=== PATIENT | female | born 1995 | race Two or more races ===

== ENCOUNTER 2017-04-24 04:46 | Emergency (ER) | payer OTHER ==
[2017-04-24 05:00] VITALS: BP 131/73; PULSE 50; RESP 14; TEMP 97.3; O2SAT 99
--- NOTE | 2017-04-24 05:32 | EDPHY ---
H & P Stated Complaint: atraumatic low back pain x 3 days Time Seen by Provider: 04/24/17 05:17 HPI/ROS: HPI The patient presents with lower back pain which has been present for the last 3 days and began after a 2 hour hike. The pain is in her right lower back, achy in nature, radiates throughout her buttocks. It has been intermittent but prevented her from sleeping tonight, so she comes into the emergency department. She has not tried taking any medicines for pain. She denies any weakness of the leg but does feel some tingling. She has not had a fever. She has no prior history of similar pain.. REVIEW OF SYSTEMS Constitutional: No fever, no chills. Eyes: No discharge. ENT: No sore throat. Cardiovascular: No chest pain, no palpitations. Respiratory: No cough, no shortness of breath. Gastrointestinal: No abdominal pain, no vomiting. Genitourinary: No hematuria. Musculoskeletal: Positive for back pain. Skin: No rashes. Neurological: No headache. PMHx: Healthy Soc Hx: College student PHYSICAL General Appearance: Alert, no distress Eyes: Pupils equal and round no pallor or injection ENT, Mouth: Mucous membranes moist Respiratory: There are no retractions, lungs are clear to auscultation Cardiovascular: Regular rate and rhythm Gastrointestinal: Abdomen is soft and non-tender, no masses, bowel sounds normal Neurological: A&O, 5/5 strength in her lower extremities which is symmetric, there is sensation intact to light touch, normal gait is present Skin: Warm and dry, no rashes Musculoskeletal: There is no midline tenderness of the thoracic or lumbar spine , there is tenderness in the right-sided lower lumbar paraspinals and in the sciatic notch Extremities: symmetrical, full range of motion Psychiatric: Patient is oriented X 3, there is no agitation Source: Patient Exam Limitations: No limitations - Personal History LMP (Females 10-55): Now Current Tetanus/Diphtheria Vaccine: Yes Tetanus Vaccine Date: <10 YRS - Medical/Surgical History Hx Asthma: No Hx Chronic Respiratory Disease: No Hx Diabetes: No Hx Cardiac Disease: No Hx Renal Disease: No Hx Cirrhosis: No Hx Alcoholism: No Hx HIV/AIDS: No Hx Splenectomy or Spleen Trauma: No Other PMH: PMHx: denies. 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 There are no red flag features. Differential diagnosis includes lumbar radiculopathy, sciatica, muscular spasm. In the emergency department, we discussed pain medication with ibuprofen and Tylenol. We discussed continuing exercise in using heat or ice packs. She is to follow up at [facility] in [place] of her symptoms persisted she may benefit from physical therapy. Departure - Departure Disposition: Home, Routine, Self-Care Clinical Impression: Lower back pain Qualifiers: Chronicity: acute Back pain laterality: right Sciatica presence: with sciatica Sciatica laterality: sciatica of right side Qualified Code(s): M54.41 - Lumbago with sciatica, right side Condition: Good Instructions: Sciatica (ED), Lower Back Exercises (ED) Additional Instructions: You should take ibuprofen 400 mg and acetaminophen 650 mg together every 6 hours as needed for pain. If the pain continues beyond 1 week, you can [facility]. Some people benefit from physical therapy. You can return to the emergency room if your worse in any way. Referrals: [facility] [Clinic] - As per Instructions Stand Alone Forms: School Excuse
== END 2017-04-24 05:41 | disposition home or self-care (01) ==
DX: M54.41 Lumbago with sciatica, right side (principal)

== ENCOUNTER 2017-06-14 20:46 | Emergency (ER) | payer OTHER ==
[2017-06-14 20:50] VITALS: RESP 18; O2SAT 98
--- NOTE | 2017-06-14 21:02 | EDPHY ---
H & P Stated Complaint: generalized abd pain x5 days Time Seen by Provider: 06/14/17 21:01 HPI/ROS: HPI: This is a 22-year-old female who presents with Chief Complaint: generalized abd pain x5 days Location: Generalized abdomen Quality: Pain Duration: 5 days Signs and Symptoms: no fever, no nausea, no vomiting, no hematemesis, no blood in stool, + abdominal bloating, no diarrhea, no back pain, no urinary symptoms, no vaginal bleeding/discharge, no indigestion, no chest pain, no shortness of breath Timing: Waxes and wanes Severity: Moderate to severe Context: Patient presents with generalized abdominal pain that started in the epigastric area and goes to suprapubic region, that waxes and wanes, nothing makes better or worse, over the last 5 days. She reports that she has been drinking plenty of fluids. Had a hard bowel movement today. She has been going to the gym and doing more sit-ups unusual. Denies any food intolerance/ fever/diarrhea/vaginal bleeding/vaginal discharge. She reports that she feels bloated and has early satiety. LMP 8-14 days ago. Modifying Factors: None Comment: ROS: see HPI Constitutional: No fever, no chills, no weight loss Eyes: No blurred vision Respiratory: No shortness of breath, no cough Cardiovascular: No chest pain, no palpitations Gastrointestinal: No nausea, no vomiting, no diarrhea, no hematemesis, no blood in stool Genitourinary: No dysuria, no blood in urine Extremities: No myalgias, no edema Neurologic: No weakness, no numbness Skin: No rashes, no petechiae Hematologic: No bruising, no bleeding MEDICAL/SURGICAL/SOCIAL HISTORY: Medical history: Generally healthy. Does not take any regular medications. Surgical history: Denies Social history: Local college student CONSTITUTIONAL: Nontoxic appearing young adult white male, awake and alert, no obvious distress HEENT: Atraumatic and normocephalic, PERRL, EOMI. Tympanic membranes clear. Oropharynx clear, no exudate and moist pink mucosa. Airway patent. No lymphadenopathy. No meningismus. Cardiovascular: Normal S1/S2, regular rate, regular rhythm, without murmur rub or gallop. PULMONARY/CHEST: Symmetrical and nontender. Clear to auscultation bilaterally. Good air movement. No accessory muscle usage. ABDOMEN: Soft, nondistended, epigastric, right upper quadrant tenderness, no rebound, no guarding, no peritoneal signs, no masses or organomegaly. No CVAT. Bowel sounds hypoactive. EXTREMITIES: 2/2 pulses, strength 5/5, no deformities, no clubbing, no cyanosis or edema. NEUROLOGICAL: no focal neuro deficits. GCS 15. SKIN: Warm and dry, no erythema. no rash. Good capillary refill. Source: Patient Exam Limitations: No limitations - Personal History LMP (Females 10-55): 8-14 Days Ago Current Tetanus/Diphtheria Vaccine: Unsure Tetanus Vaccine Date: <10 YRS - Medical/Surgical History Hx Asthma: No Hx Chronic Respiratory Disease: No Hx Diabetes: No Hx Cardiac Disease: No Hx Renal Disease: No Hx Cirrhosis: No Hx Alcoholism: No Hx HIV/AIDS: No Hx Splenectomy or Spleen Trauma: No Other PMH: PMHx: denies. PSHx: denies - Social History Smoking Status: Never smoked Constitutional: Initial Vital Signs Temperature (C) 36.6 C 06/14/17 20:48 Heart Rate 77 06/14/17 20:48 Respiratory Rate 18 06/14/17 20:48 Blood Pressure 133/88 H 06/14/17 20:48 O2 Sat (%) 98 06/14/17 20:48 O2 Delivery Mode Room Air Allergies/Adverse Reactions: No Known Allergies Allergy (Verified 06/14/17 20:50) Home Medications: Medication Instructions Recorded Polyethylene Glycol 3350 [Miralax 17 gm PO DAILY #20 pkt 06/14/17 17 gm (*)] Medical Decision Making - Diagnostics Imaging Results: Imaging Impressions Abdomen X-Ray 06/14/17 21:06 Impression: Constipation. Otherwise negative. ED Course/Re-evaluation: Labs, urinalysis, right upper quadrant ultrasound, KUB ordered Urinalysis negative. Labs reviewed and show a white blood cell count of 14 K. no signs of anemia/ electrolyte imbalance/acute kidney injury/transaminitis Not Called by radiologist who advised ultrasound shows no signs of cholecystitis pancreatitis hydronephrosis. KUB shows large amount of stool burden consistent with constipation MiralAx given. This patient was seen under the supervision of my secondary supervising physician. I evaluated care for this patient independently. Discussed this patient with Dr. Shabazz who did not see the patient. Differential Diagnosis: Abdominal pain including but not limited to appendicitis, musculoskeletal, cholecystitis, gastritis and urinary tract infection. - Data Points Laboratory Results: Laboratory Results 06/14/17 21:10 06/14/17 21:10 06/14/17 06/14/17 06/14/17 21:10 21:10 21:10 WBC 14.48 10^3/uL H 10^3/uL (3.80-9.50) RBC 4.74 10^6/uL 10^6/uL (4.18-5.33) Hgb 14.0 g/dL g/dL (12.6-16.3) Hct 40.7 % % (38.0-47.0) MCV 85.9 fL fL (81.5-99.8) MCH 29.5 pg pg (27.9-34.1) MCHC 34.4 g/dL g/dL (32.4-36.7) RDW 13.5 % % (11.5-15.2) Plt Count 325 10^3/uL 10^3/uL (150-400) MPV 11.0 fL fL (8.7-11.7) Neut % (Auto) 62.1 % % (39.3-74.2) Lymph % (Auto) 30.3 % % (15.0-45.0) [place] % (Auto) 5.9 % % (4.5-13.0) Eos % (Auto) 1.0 % % (0.6-7.6) Baso % (Auto) 0.4 % % (0.3-1.7) Nucleat RBC Rel Count 0.0 % % (0.0-0.2) Absolute Neuts (auto) 8.99 10^3/uL H 10^3/uL (1.70-6.50) Absolute Lymphs (auto) 4.39 10^3/uL H 10^3/uL (1.00-3.00) Absolute Monos (auto) 0.85 10^3/uL H 10^3/uL (0.30-0.80) Absolute Eos (auto) 0.15 10^3/uL 10^3/uL (0.03-0.40) Absolute Basos (auto) 0.06 10^3/uL 10^3/uL (0.02-0.10) Absolute Nucleated RBC 0.00 10^3/uL 10^3/uL (0-0.01) Immature Gran % 0.3 % % (0.0-1.1) Immature Gran # 0.04 10^3/uL 10^3/uL (0.00-0.10) Sodium 143 mEq/L mEq/L (134-144) Potassium 3.9 mEq/L mEq/L (3.5-5.2) Chloride 103 mEq/L mEq/L (97-110) Carbon Dioxide 25 mEq/l mEq/l (22-31) Anion Gap 15 mEq/L mEq/L (8-16) BUN 15 mg/dL mg/dL (7-23) Creatinine 0.8 mg/dL mg/dL (0.6-1.0) Estimated GFR > 60 Glucose 80 mg/dL mg/dL (70-100) Calcium 10.1 mg/dL mg/dL (8.5-10.4) Total Bilirubin 0.6 mg/dL mg/dL (0.1-1.4) Conjugated Bilirubin 0.1 mg/dL mg/dL (0.0-0.5) Unconjugated Bilirubin 0.5 mg/dL mg/dL (0.0-1.1) AST 26 IU/L IU/L (14-46) ALT 36 IU/L IU/L (9-52) Alkaline Phosphatase 71 IU/L IU/L (38-126) Total Protein 7.5 g/dL g/dL (6.3-8.2) Albumin 4.5 g/dL g/dL (3.5-5.0) Lipase 97 IU/L IU/L (23-300) Beta HCG, Qual NEGATIVE Urine Color Urine Appearance Urine pH Ur Specific [place] Urine Protein Urine Ketones Urine Blood Urine Nitrate Urine Bilirubin Urine Urobilinogen Ur Leukocyte Esterase Urine Glucose 06/14/17 20:54 WBC RBC Hgb Hct MCV MCH MCHC RDW Plt Count MPV Neut % (Auto) Lymph % (Auto) [place] % (Auto) Eos % (Auto) Baso % (Auto) Nucleat RBC Rel Count Absolute Neuts (auto) Absolute Lymphs (auto) Absolute Monos (auto) Absolute Eos (auto) Absolute Basos (auto) Absolute Nucleated RBC Immature Gran % Immature Gran # Sodium Potassium Chloride Carbon Dioxide Anion Gap BUN Creatinine Estimated GFR Glucose Calcium Total Bilirubin Conjugated Bilirubin Unconjugated Bilirubin AST ALT Alkaline Phosphatase Total Protein Albumin Lipase Beta HCG, Qual Urine Color YELLOW Urine Appearance CLEAR Urine pH 7.0 (5.0-7.5) Ur Specific [place] 1.018 (1.002-1.030) Urine Protein NEGATIVE (NEGATIVE) Urine Ketones NEGATIVE (NEGATIVE) Urine Blood NEGATIVE (NEGATIVE) Urine Nitrate NEGATIVE (NEGATIVE) Urine Bilirubin NEGATIVE (NEGATIVE) Urine Urobilinogen NEGATIVE EU EU (0.2-1.0) Ur Leukocyte Esterase NEGATIVE (NEGATIVE) Urine Glucose NEGATIVE (NEGATIVE) Departure - Departure Disposition: Home, Routine, Self-Care Clinical Impression: Constipation Qualifiers: Constipation type: unspecified constipation type Qualified Code(s): K59.00 - Constipation, unspecified Condition: Good Instructions: Constipation (ED), High Fiber Diet (ED) Additional Instructions: Please take MiraLax daily for the next 7 days and then daily as needed for constipation. Please drink a minimum of 8-10 glasses of water per day. Eat a diet high in fiber that includes fruits and vegetables. Referrals: [facility],. [Clinic] - As per Instructions Prescriptions: Polyethylene Glycol 3350 [Miralax 17 gm (*)] 17 gm PO DAILY #20 pkt
[2017-06-14 21:07] LABS: COLOR YELLOW; LEUKOCYTE ESTERASE,URINE NEGATIVE (NEGATIVE); NITRITE,URINE NEGATIVE (NEGATIVE)
[2017-06-14 21:23] LABS: % IMMATURE GRANULYOCYTES 0.3 % (0.0-1.1); ABSOLUTE IMMATURE GRANULOCYTES 0.04 10^3/uL (0.00-0.10); ADD DIFF? NO; ADD MORPH? NO; ADD SCAN? NO; ATYPICAL LYMPHOCYTE FLAG 0 (0-99); FRAGMENT RBC FLAG 0 (0-99); HEMATOCRIT 40.7 % (38.0-47.0); LEFT SHIFT FLG 0 (0-99); LIPEMIA HEMOLYSIS FLAG 90 (0-99); MEAN CELL HEMOGLOBIN 29.5 pg (27.9-34.1); MEAN CELL HEMOGLOBIN CONCENTR. 34.4 g/dL (32.4-36.7); MEAN CELL VOLUME 85.9 fL (81.5-99.8); PLATELET CLUMPS FLAG 0 (0-99); PLATELET COUNT 325 10^3/uL (150-400); RED BLOOD CELL COUNT 4.74 10^6/uL (4.18-5.33); RED CELL DISTRIBUTION WIDTH 13.5 % (11.5-15.2)
[2017-06-14 21:38] LABS: ALANINE AMINOTRANSFERASE 36 IU/L (9-52); ALBUMIN 4.5 g/dL (3.5-5.0); ALKALINE PHOSPHATASE 71 IU/L (38-126); ANION GAP 15 mEq/L (8-16); ASPARTATE AMINOTRANSFERASE 26 IU/L (14-46); BILIRUBIN,TOTAL 0.6 mg/dL (0.1-1.4); BILIRUBIN-CONJUGATED 0.1 mg/dL (0.0-0.5); BILIRUBIN-UNCONJUGATED 0.5 mg/dL (0.0-1.1); CALCIUM 10.1 mg/dL (8.5-10.4); CARBON DIOXIDE 25 mEq/l (22-31); CHLORIDE 103 mEq/L (97-110); CREATININE 0.8 mg/dL (0.6-1.0); GLOMERULAR FILTRATION RATE > 60; GLUCOSE 80 mg/dL (70-100); POTASSIUM 3.9 mEq/L (3.5-5.2); SODIUM 143 mEq/L (134-144); TOTAL PROTEIN 7.5 g/dL (6.3-8.2)
[2017-06-14] MEDS ORDERED: POLYETHYLENE GLYCOL 3350 17 GM PKT PO ONE (22:17)
[2017-06-14 22:41] VITALS: BP 111/67; PULSE 65; TEMP 98.1
== END 2017-06-14 22:41 | disposition home or self-care (01) ==
DX: K59.00 Constipation, unspecified (principal)